=== PATIENT | female | born 1995 | race Hispanic/Latino ===

== ENCOUNTER 2017-07-04 19:39 | Emergency (ER) | payer OTHER ==
[~2017-07-04] VITALS: Ht 152.4 cm; Wt 59.0 kg
[2017-07-04] MEDS ORDERED: METHYLPREDNISOLONE SOD SUCC 125 MG/2ML VIAL IV ONE (20:15)
[2017-07-04] MEDS ORDERED: ALBUTEROL/IPRATROPIUM 3 ML NEB NEB ONE ×2 (20:15→22:15)
[2017-07-04] MEDS ORDERED: SODIUM CHLORIDE 0.9% 1000ML 1,000 ML IV SCH (21:00)
[2017-07-04 23:37] VITALS: BP 133/63
== END 2017-07-04 23:38 | disposition home or self-care (01) ==
LOC: FSED 19:39
DX: R06.00 Dyspnea, unspecified (principal); R05 Cough; J45.41 Moderate persistent asthma with (acute) exacerbation; J00 Acute nasopharyngitis [common cold]
CPT/HCPCS: 71046; 80053; 81003; 81025; 83880; 85025; 99284; J2930